=== PATIENT | female | born 1990 | race Caucasian/White ===

== ENCOUNTER 2017-12-14 17:13 | Emergency (ER) | payer SELFPAY ==
--- NOTE | 2017-12-14 19:05 | ER ---
Nurse's Notes [facility] Name: Sade Breaux Age: 27 yrs Sex: Female : 1990 Arrival Date: 12/14/2017 Time: 17:16 Bed 28 Private MD: None, None Diagnosis: Dermatitis, unspecified Presentation: 12/14 18:08 Presenting complaint: Patient states: Rash to right forearm and upper right arm since aj Sunday. Transition of care: patient was not received from another setting of care. Onset of symptoms was December 09, 2017. Risk Assessment: Do you want to hurt yourself or someone else? Patient reports no desire to harm self or others. Care prior to arrival: None. 18:08 Method Of Arrival: Ambulatory aj 18:08 Acuity: LETTY 4 aj 18:08 Acuity: LETTY 5 aj 19:17 Initial Sepsis Screen: Does the patient meet any 2 criteria? No. Patient's initial tl3 sepsis screen is negative. Does the patient have a suspected source of infection? No. Patient's initial sepsis screen is negative. Triage Assessment: 18:10 General: Appears in no apparent distress. comfortable, Behavior is calm, cooperative, aj appropriate for age. Pain: Denies pain. Neuro: Level of Consciousness is awake, alert, obeys commands, Oriented to person, place, time, situation, Appropriate for age. Respiratory: Airway is patent Respiratory effort is even, unlabored, Respiratory pattern is regular, symmetrical. Derm: Skin is intact, is healthy with good turgor, Skin is pink, warm \T\ dry. normal, Rash noted that is red, raised, on right tricep and palmar aspect of right forearm. 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 - Social history:: Smoking status: Patient/guardian denies using tobacco. - Ebola Screening: : Patient negative for fever greater than or equal to 101.5 degrees Fahrenheit, and additional compatible Ebola Virus Disease symptoms Patient denies exposure to infectious person Patient denies travel to an Ebola-affected area in the 21 days before illness onset No symptoms or risks identified at this time. - Family history:: not pertinent. Screenin:44 Abuse screen: Denies threats or abuse. Nutritional screening: No deficits noted. tl3 Tuberculosis screening: No symptoms or risk factors identified. Fall Risk None identified. Assessment: 18:44 General: Appears uncomfortable, slender, well groomed, well developed, well nourished, tl3 Behavior is calm, cooperative, appropriate for age. Pain: Denies pain. Complains of pain in right arm and palmar aspect of right forearm and right tricep. Neuro: Level of Consciousness is awake, alert, obeys commands, Oriented to person, place, time, situation, Appropriate for age. Cardiovascular: No deficits noted. Patient's skin is warm and dry. Respiratory: No deficits noted. Airway is patent Respiratory effort is even, unlabored, Respiratory pattern is regular, symmetrical. GI: No signs and/or symptoms were reported involving the gastrointestinal system. : No signs and/or symptoms were reported regarding the genitourinary system. EENT: No signs and/or symptoms were reported regarding the EENT system. Derm: Reports rash since Sunday, after clearing some weeds. Musculoskeletal: No deficits noted. Vital Signs: 18:10 BP 98 / 67; Pulse 82; Resp 17; Temp 97.9; Pulse Ox 100% on R/A; Weight 65.32 kg; Height aj 5 ft. 6 in. (167.64 cm); 18:44 BP 110 / 77; Pulse 59; Resp 18; Pulse Ox 100% ; tl3 18:10 Body Mass Index 23.24 (65.32 kg, 167.64 cm) aj ED Course: 17:16 Patient arrived in ED. sb2 17:16 None, None is Private Physician. sb2 18:10 Triage completed. aj 18:10 Arm band placed on left wrist. Patient placed in waiting room, Patient notified of wait aj time. 18:40 Milvia Watts, RN is Primary Nurse. tl3 18:44 Patient has correct armband on for positive identification. Bed in low position. Call tl3 light in reach. Pulse ox on. NIBP on. 18:44 No provider procedures requiring assistance completed. tl3 18:55 Mayo Abdul MD is Attending Physician. gerardo 19:16 Patient did not have IV access during this emergency room visit. tl3 Administered Medications: 19:15 Drug: Pepcid 20 mg Route: PO; tl3 19:16 Follow up: Response: Medication administered at discharge. tl3 19:16 Drug: predniSONE 20 mg Route: PO; tl3 19:16 Follow up: Response: Medication administered at discharge. tl3 Outcome: 19:05 Discharge ordered by . gerardo 19:16 Discharged to home ambulatory. tl3 19:16 Condition: good 19:16 Discharge instructions given to patient, Instructed on discharge instructions, follow up and referral plans. medication usage, Demonstrated understanding of instructions, follow-up care, medications, Prescriptions given X 3. 19:17 Patient left the ED. tl3 Signatures: Aliya Soto, RN RN Mayo Newton MD MD cha Billeau, Sheri 2 Milvia Watts, RAFAELA RN tl3
--- NOTE | 2017-12-14 19:05 | EDPHYS ---
Physician Documentation [facility] Name: Sade Breaux Age: 27 yrs Sex: Female : 1990 Arrival Date: 12/14/2017 Time: 17:16 Bed 28 Private MD: None, None ED Physician Mayo Abdul HPI: 12/14 19:01 This 27 yrs old Female presents to ER via Ambulatory with complaints of Rash. gerardo 19:01 The patient's rash thought to be caused by Dermatitis. The rash is located on the right gerardo arm, left arm and right leg. The rash can be described as erythematous, raised. Onset: The symptoms/episode began/occurred 2 day(s) ago. Associated signs and symptoms: Pertinent positives: burning sensation, itching. Severity of symptoms: At their worst the symptoms were mild in the emergency department the symptoms are unchanged. Treatment given at home: Benadryl, OTC lotion/cream steroid lotion/cream. Unable to obtain HPI due to. The patient has not experienced similar symptoms in the past. 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 - Social history:: Smoking status: Patient/guardian denies using tobacco. - Ebola Screening: : Patient negative for fever greater than or equal to 101.5 degrees Fahrenheit, and additional compatible Ebola Virus Disease symptoms Patient denies exposure to infectious person Patient denies travel to an Ebola-affected area in the 21 days before illness onset No symptoms or risks identified at this time. - Family history:: not pertinent. ROS: 19:01 Constitutional: Negative for fever, chills, and weight loss, Eyes: Negative for injury, gerardo pain, redness, and discharge, ENT: Negative for injury, pain, and discharge, Neck: Negative for injury, pain, and swelling, Cardiovascular: Negative for chest pain, palpitations, and edema, Respiratory: Negative for shortness of breath, cough, wheezing, and pleuritic chest pain, Abdomen/GI: Negative for abdominal pain, nausea, vomiting, diarrhea, and constipation, Back: Negative for injury and pain, : Negative for injury, bleeding, discharge, and swelling, Skin: Negative for injury, rash, and discoloration, Neuro: Negative for headache, weakness, numbness, tingling, and seizure, Psych: Negative for depression, anxiety, suicide ideation, homicidal ideation, and hallucinations, Allergy/Immunology: Negative for hives, rash, and allergies, Endocrine: Negative for neck swelling, polydipsia, polyuria, polyphagia, and marked weight changes, Hematologic/Lymphatic: Negative for swollen nodes, abnormal bleeding, and unusual bruising. 19:01 MS/extremity: Positive for rash, of the right arm, left arm and right leg. Exam: 19:01 Constitutional: This is a well developed, well nourished patient who is awake, alert, gerardo and in no acute distress. Head/Face: Normocephalic, atraumatic. Eyes: Pupils equal round and reactive to light, extra-ocular motions intact. Lids and lashes normal. Conjunctiva and sclera are non-icteric and not injected. Cornea within normal limits. Periorbital areas with no swelling, redness, or edema. ENT: Nares patent. No nasal discharge, no septal abnormalities noted. Tympanic membranes are normal and external auditory canals are clear. Oropharynx with no redness, swelling, or masses, exudates, or evidence of obstruction, uvula midline. Mucous membranes moist. Neck: Trachea midline, no thyromegaly or masses palpated, and no cervical lymphadenopathy. Supple, full range of motion without nuchal rigidity, or vertebral point tenderness. No Meningismus. Chest/axilla: Normal chest wall appearance and motion. Nontender with no deformity. No lesions are appreciated. Cardiovascular: Regular rate and rhythm with a normal S1 and S2. No gallops, murmurs, or rubs. Normal PMI, no JVD. No pulse deficits. Respiratory: Lungs have equal breath sounds bilaterally, clear to auscultation and percussion. No rales, rhonchi or wheezes noted. No increased work of breathing, no retractions or nasal flaring. Abdomen/GI: Soft, non-tender, with normal bowel sounds. No distension or tympany. No guarding or rebound. No evidence of tenderness throughout. Back: No spinal tenderness. No costovertebral tenderness. Full range of motion. MS/ Extremity: Pulses equal, no cyanosis. Neurovascular intact. Full, normal range of motion. Neuro: Awake and alert, GCS 15, oriented to person, place, time, and situation. Cranial nerves II-XII grossly intact. Motor strength 5/5 in all extremities. Sensory grossly intact. Cerebellar exam normal. Normal gait. Psych: Awake, alert, with orientation to person, place and time. Behavior, mood, and affect are within normal limits. 19:01 Skin: rash can be described as erythematous, nonspecific, raised. Vital Signs: 18:10 BP 98 / 67; Pulse 82; Resp 17; Temp 97.9; Pulse Ox 100% on R/A; Weight 65.32 kg; Height aj 5 ft. 6 in. (167.64 cm); 18:44 BP 110 / 77; Pulse 59; Resp 18; Pulse Ox 100% ; tl3 18:10 Body Mass Index 23.24 (65.32 kg, 167.64 cm) aj MDM: 18:55 Patient medically screened. gerardo Administered Medications: 19:15 Drug: Pepcid 20 mg Route: PO; tl3 19:16 Follow up: Response: Medication administered at discharge. tl3 19:16 Drug: predniSONE 20 mg Route: PO; tl3 19:16 Follow up: Response: Medication administered at discharge. tl3 Disposition: 12/14/17 19:05 Discharged to Home. Impression: Dermatitis, unspecified. - Condition is Stable. - Discharge Instructions: Contact Dermatitis, Rash, Rash, [id number], Contact Dermatitis, [id number]. - Prescriptions for Bactroban 2 % Topical Ointment - Apply to affected area 1 application by TOPICAL route every 12 hours; 30 gram. Benadryl 25 mg Oral Capsule - take 1 capsule by ORAL route every 6 hours As needed; 30 tablet. Pepcid 20 mg Oral Tablet - take 1 tablet by ORAL route every 12 hours for 10 days; 20 tablet. Medrol (Jim) 4 mg Oral Tablets, Dose Pack - take 1 tablet by ORAL route as directed - follow package instructions; 1 packet. - Medication Reconciliation Form, Thank You Letter, Antibiotic Education, Prescription Opioid Use form. - Follow up: Private Physician; When: 2 - 3 days; Reason: Recheck today's complaints, Continuance of care, Re-evaluation by your physician. - Problem is new. - Symptoms have improved. Signatures: Aliya Soto, RN RN Mayo Newton MD MD cha Lowrey, Tammy, RAFAELA RN tl3 Corrections: (The following items were deleted from the chart) 19:17 19:05 12/14/2017 19:05 Discharged to Home. Impression: Dermatitis, unspecified. tl3 Condition is Stable. Forms are Medication Reconciliation Form, Thank You Letter, Antibiotic Education, Prescription Opioid Use. Follow up: Private Physician; When: 2 - 3 days; Reason: Recheck today's complaints, Continuance of care, Re-evaluation by your physician. Problem is new. Symptoms have improved. gerardo
[2017-12-14] MEDS ORDERED: predniSONE 20 MG TAB ONE (19:13)
[2017-12-14] MEDS ORDERED: FAMOTIDINE 20 MG TAB ONE (19:13)
[2017-12-14 19:21] VITALS: TEMP 97.9; O2SAT 100
[2017-12-14 19:22] VITALS: BP 110/77
== END 2017-12-14 19:17 | disposition home or self-care (01) ==
LOC: ER 17:13
DX: L30.9 Dermatitis, unspecified (principal)
CPT/HCPCS: 99283; J7512

== ENCOUNTER 2018-04-19 09:38 | Observation (INO) | payer SELFPAY ==
[2018-04-19] MEDS ORDERED: NA CHLORIDE 0.9% 1,000 ML ONE (10:36)
[2018-04-19 10:55] LABS: Absolute Lymphocytes (CBC) 1.6 K/uL (0.7-4.9); Absolute Neutrophil 9.7 K/uL (1.8-8.0); Basophils % 0.2 % (0-1.3); Eosinophils % 0.4 % (0-4.4); Hematocrit 36.8 % (36.0-45.0); Lymphocytes % 13.2 % (15.3-44.8); MPV 8.6 fL (7.6-11.3); Monocytes % 7.7 % (3.3-12.3); RBC Red Blood Cell Count 3.95 M/uL (3.86-4.86)
[2018-04-19 11:05] LABS: ALT/SGPT 16 U/L (12-78); AST/SGOT 10 U/L (15-37); Albumin 3.8 g/dL (3.4-5.0); Alkaline Phosphatase 84 U/L (45-117); BUN Blood Urea Nitrogen 12 mg/dL (7-18); Bicarbonate 28 mmol/L (21-32); Bilirubin Direct 0.2 mg/dL (0-0.2); Bilirubin Total 0.9 mg/dL (0.2-1.0); Glucose Level 101 mg/dL (74-106); Lipase 126 U/L (73-393); Potassium 3.6 mmol/L (3.5-5.1); Protein, Total 7.7 g/dL (6.4-8.2); Sodium Level 141 mmol/L (136-145)
--- NOTE | 2018-04-19 11:28 | RAD REPORT ---
EXAM DESCRIPTION: CT - Pelvis W/Cont - 04/19/2018 11:18 am CLINICAL HISTORY: Rectal abscess COMPARISON: No comparisons TECHNIQUE: All CT scans are performed using dose optimization technique as appropriate and may inclu de automated exposure control or mA/KV adjustment according to patient size. FINDINGS: A left perirectal abscess is identified measuring 29 x 19 x 29 mm (AP x T x CC). The adjac ent soft tissues are thickened with inflammation in the fat. No intrapelvic extension of abscess seen. IUD is in the uterus. Several mildly prominent inguinal lym ph nodes present. IMPRESSION: Left perirectal abscess as detailed.
[2018-04-19] MEDS ORDERED: MORPHINE 4 MG/ML SYR ONE ×2 (11:37→14:44)
[2018-04-19] MEDS ORDERED: ONDANSETRON 4 MG/2 ML VIAL ONE (11:37)
[2018-04-19] MEDS ORDERED: CIPROFLOXACIN 400mg IV 400 MG/200 ML BAG IV ONE (11:56)
[2018-04-19] MEDS ORDERED: METRONIDAZOLE 500mg IVPB 500 MG/100 ML BAG IV ONE (11:56)
--- NOTE | 2018-04-19 11:57 | EDPHYS ---
Physician Documentation [facility] Name: Sade Breaux Age: 27 yrs Sex: Female : 1990 Arrival Date: 04/19/2018 Time: 09:41 Bed 14 Private MD: ED Physician Tony Wilson HPI: 04/19 10:10 This 27 yrs old Female presents to ER via Ambulatory with complaints of pm1 Abscess. 10:10 the patient presents with a swollen area of the left side of anus. Description: pm1 swollen. Onset: The symptoms/episode began/occurred 5 day(s) ago. Possible cause(s): Unknown. Associated signs and symptoms: Pertinent negatives: discharge, drainage, fever. Modifying factors: the symptoms are alleviated by repositioning , the symptoms are aggravated by pressure. Severity of symptoms: in the emergency department the symptoms are actually worse. The patient has not experienced similar symptoms in the past. The patient has not recently seen a physician. Patient shaved perianal area about 1 week ago. 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 - Social history:: Smoking status: Patient uses tobacco products, denies chronic smoking, but will smoke occasionally. - Ebola Screening: : No symptoms or risks identified at this time. ROS: 10:10 Constitutional: Negative for fever, chills, and weight loss, Eyes: Negative for injury, pm1 pain, redness, and discharge, ENT: Negative for injury, pain, and discharge, Neck: Negative for injury, pain, and swelling, Cardiovascular: Negative for chest pain, palpitations, and edema, Respiratory: Negative for shortness of breath, cough, wheezing, and pleuritic chest pain. 10:10 Back: Negative for injury and pain, : Negative for injury, bleeding, discharge, and swelling, MS/Extremity: Negative for injury and deformity, Skin: Negative for injury, rash, and discoloration, Neuro: Negative for headache, weakness, numbness, tingling, and seizure. 10:10 Abdomen/GI: Positive for rectal pain, Negative for abdominal pain, nausea, vomiting, and diarrhea, constipation. Exam: 10:10 Constitutional: This is a well developed, well nourished patient who is awake, alert, pm1 and in no acute distress. Head/Face: Normocephalic, atraumatic. Eyes: Pupils equal round and reactive to light, extra-ocular motions intact. Lids and lashes normal. Conjunctiva and sclera are non-icteric and not injected. Cornea within normal limits. Periorbital areas with no swelling, redness, or edema. ENT: Nares patent. No nasal discharge, no septal abnormalities noted. Tympanic membranes are normal and external auditory canals are clear. Oropharynx with no redness, swelling, or masses, exudates, or evidence of obstruction, uvula midline. Mucous membranes moist. Neck: Trachea midline, no thyromegaly or masses palpated, and no cervical lymphadenopathy. Supple, full range of motion without nuchal rigidity, or vertebral point tenderness. No Meningismus. Chest/axilla: Normal chest wall appearance and motion. Nontender with no deformity. No lesions are appreciated. Cardiovascular: Regular rate and rhythm with a normal S1 and S2. No gallops, murmurs, or rubs. Normal PMI, no JVD. No pulse deficits. Respiratory: Lungs have equal breath sounds bilaterally, clear to auscultation and percussion. No rales, rhonchi or wheezes noted. No increased work of breathing, no retractions or nasal flaring. 10:10 Back: No spinal tenderness. No costovertebral tenderness. Full range of motion. Skin: Warm, dry with normal turgor. Normal color with no rashes, no lesions, and no evidence of cellulitis. MS/ Extremity: Pulses equal, no cyanosis. Neurovascular intact. Full, normal range of motion. 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 10:10 Neuro: Orientation: is normal, Motor: is normal, moves all fours. Vital Signs: 09:49 BP 127 / 72; Pulse 121; Resp 16; Temp 98.1(O); Pulse Ox 100% ; Pain 8/10; hb 09:53 Pulse 106; sg 11:39 BP 105 / 63; Pulse 65; Resp 17; Pulse Ox 100% on R/A; sg 13:00 BP 108 / 66; Pulse 62; Resp 17; Pulse Ox 99% on R/A; Pain 6/10; sg 14:00 BP 110 / 66; Pulse 66; Resp 16; Pulse Ox 99% on R/A; Pain 6/10; sg 15:20 BP 108 / 62; Pulse 62; Resp 16; Temp 98.1; Pulse Ox 100% on R/A; Pain 3/10; sg MDM: 09:54 Patient medically screened. pm1 11:43 Data reviewed: vital signs. Data interpreted: Pulse oximetry: on room air is 100 %. pm1 Interpretation: normal. Counseling: I had a detailed discussion with the patient and/or guardian regarding: the historical points, exam findings, and any diagnostic results supporting the discharge/admit diagnosis, lab results, radiology results, the need for further work-up and treatment in the hospital. 11:53 Physician consultation: Sy Gaviria MD was called at 11:53. pm1 12:14 ED course: Patient last ate food at lunch yesterday and patient last drank 1/2 cup of pm1 sweet tea at 0800 today. 04/19 10:05 Order name: Basic Metabolic Panel; Complete Time: 11:27 pm1 04/19 10:05 Order name: CBC with Diff; Complete Time: 11:27 pm1 04/19 10:05 Order name: Creatinine for Radiology; Complete Time: 11:27 pm1 04/19 10:05 Order name: Hepatic Function; Complete Time: 11:27 pm1 04/19 10:05 Order name: Lipase; Complete Time: 11:27 pm1 04/19 10:14 Order name: Urine Dipstick--Ancillary (enter results); Complete Time: 14:32 eb 04/19 10:05 Order name: CT Pelvis w cont: IV contrast only; Complete Time: 11:37 pm1 04/19 10:14 Order name: Urine --Ancillary (enter results); Complete Time: 14:32 eb 04/19 13:15 Order name: Basic Metabolic Panel EDKY 04/19 13:15 Order name: Basic Metabolic Panel EDKY 04/19 13:15 Order name: CBC with Automated Diff EDMS 04/19 13:15 Order name: CBC with Automated Diff EDMS 04/19 10:05 Order name: IV Saline Lock; Complete Time: 10:37 pm1 04/19 10:05 Order name: Labs collected and sent; Complete Time: 10:37 pm1 04/19 10:09 Order name: NPO; Complete Time: 10:11 pm1 04/19 13:15 Order name: NPO EDMS Administered Medications: 10:37 Drug: NS 0.9% 1000 ml Route: IV; Rate: 1000 ml; Site: right antecubital; sg 11:40 Follow up: Response: No adverse reaction; IV Status: Completed infusion; IV Intake: sg 990ml 11:36 Drug: Zofran 4 mg Route: IVP; Site: right antecubital; sg 11:58 Follow up: Response: No adverse reaction; Nausea is decreased sg 11:38 Drug: morphine 4 mg Route: IVP; Site: right antecubital; sg 11:58 Follow up: Response: No adverse reaction; Pain is decreased sg 11:55 Drug: Flagyl 500 mg Volume: 100 ml; Route: IVPB; Rate: 200 ml/hr; Infused Over: 30 sg mins; Site: right antecubital; 12:35 Follow up: Response: No adverse reaction; IV Status: Completed infusion sg 12:13 Drug: Cipro 400 mg Volume: 200 ml; Route: IVPB; Infused Over: 60 mins; Site: right sg antecubital; 13:20 Follow up: Response: No adverse reaction; IV Status: Completed infusion sg 14:45 Drug: morphine 4 mg Route: IVP; Site: right antecubital; sg 15:22 Follow up: Response: No adverse reaction; Pain is decreased sg Disposition: 17:18 Co-signature as Attending Physician, Tony Wilson MD. rn Disposition: 04/19/18 11:56 Hospitalization ordered by Sy Gaviria for Observation. Preliminary diagnosis is Perirectal abscess. - Bed requested for Telemetry/MedSurg (observation). - Status is Observation. sg - Condition is Stable. - Problem is new. - Symptoms have improved. UTI on Admission? No Signatures: Dispatcher [employer] EDMS Ken Garcia RN RN Tony Wilson MD MD rn Marinas, Patrick, NP PROFESSIONAL BASS FISHER pm1 Sabine Garza, RN RN Zofia Tamayo Corrections: (The following items were deleted from the chart) 12:59 11:56 Hospitalization Ordered by Sy Gaviria MD for Observation. Preliminary eb diagnosis is Perirectal abscess. Bed requested for Telemetry/MedSurg (observation). Status is Observation. Condition is Stable. Problem is new. Symptoms have improved. UTI on Admission? No. pm1 14:04 12:59 04/19/2018 11:56 Hospitalization Ordered by Sy Gaviria MD for Observation. eb Preliminary diagnosis is Perirectal abscess. Bed requested for Telemetry/MedSurg (observation). Status is Observation. Condition is Stable. Problem is new. Symptoms have improved. UTI on Admission? No. eb 15:43 14:04 04/19/2018 11:56 Hospitalization Ordered by Sy Gaviria MD for Observation. sg Preliminary diagnosis is Perirectal abscess. Bed requested for Telemetry/MedSurg (observation). Status is Observation. Condition is Stable. Problem is new. Symptoms have improved. UTI on Admission? No. eb
--- NOTE | 2018-04-19 11:57 | ER ---
Nurse's Notes [facility] Name: Sade Breaux Age: 27 yrs Sex: Female : 1990 Arrival Date: 04/19/2018 Time: 09:41 Bed 14 Private MD: Diagnosis: Perirectal abscess Presentation: 04/19 09:48 Presenting complaint: Patient states: Abscess on buttock x 5 days. Transition of care: hb patient was not received from another setting of care. Onset of symptoms was April 15, 2018. Risk Assessment: Do you want to hurt yourself or someone else? Patient reports no desire to harm self or others. Care prior to arrival: None. 09:48 Method Of Arrival: Ambulatory hb 09:48 Acuity: LETTY 3 hb DIRECTOR OF ANNUAL GIVING: 09:50 LMP N/A - control method hb Historical: - Allergies: 09:51 No Known Allergies; hb - Home Meds: 09:51 None [Active]; hb - PMHx: 09:51 None; hb - PSHx: 09:51 Neck; hb 09:51 Back; hb - Immunization history:: Adult Immunizations up to date. - Social history:: Smoking status: Patient uses tobacco products, denies chronic smoking, but will smoke occasionally. - Ebola Screening: : No symptoms or risks identified at this time. Screenin:40 Abuse screen: Denies threats or abuse. Denies injuries from another. Nutritional sg screening: No deficits noted. Tuberculosis screening: No symptoms or risk factors identified. Never had TB. Fall Risk None identified. Assessment: 10:40 General: Appears in no apparent distress. uncomfortable, well groomed, well developed, sg well nourished, Behavior is calm, cooperative, appropriate for age. Pain: Complains of pain in buttocks Quality of pain is described as tender. Neuro: No deficits noted. Cardiovascular: Patient's skin is warm and dry. Chest pain is denied. Respiratory: Airway is patent Respiratory effort is even, unlabored, Respiratory pattern is regular, symmetrical. GI: No signs and/or symptoms were reported involving the gastrointestinal system. : No signs and/or symptoms were reported regarding the genitourinary system. EENT: No signs and/or symptoms were reported regarding the EENT system. Derm: Skin is pink, warm \T\ dry. Abscess located on gluteal cleft is nickel sized, is red. Musculoskeletal: No signs and/or symptoms reported regarding the musculoskeletal system. 11:59 Reassessment: Patient appears in no apparent distress at this time. Patient and/or sg family updated on plan of care and expected duration. Pain level reassessed. Last meal 11 am yesterday, drank some water this morning per pt. 12:22 Reassessment: Patient appears in no apparent distress at this time. Patient and/or sg family updated on plan of care and expected duration. Pain level reassessed. Patient is alert, oriented x 3, equal unlabored respirations, skin warm/dry/pink. Vital Signs: 09:49 BP 127 / 72; Pulse 121; Resp 16; Temp 98.1(O); Pulse Ox 100% ; Pain 8/10; hb 09:53 Pulse 106; sg 11:39 BP 105 / 63; Pulse 65; Resp 17; Pulse Ox 100% on R/A; sg 13:00 BP 108 / 66; Pulse 62; Resp 17; Pulse Ox 99% on R/A; Pain 6/10; sg 14:00 BP 110 / 66; Pulse 66; Resp 16; Pulse Ox 99% on R/A; Pain 6/10; sg 15:20 BP 108 / 62; Pulse 62; Resp 16; Temp 98.1; Pulse Ox 100% on R/A; Pain 3/10; sg ED Course: 09:41 Patient arrived in ED. as 09:49 Triage completed. hb 09:50 Alex Day NP is PHCP. pm1 09:50 Tony Wilson MD is Attending Physician. pm1 09:50 Arm band placed on right wrist. hb 09:53 Ken Garcia, RAFAELA is Primary Nurse. sg 10:10 Urine collected: clean catch specimen, lillian colored. dh3 10:30 Initial lab(s) drawn, by me, sent to lab. Inserted saline lock: 20 gauge in right sg antecubital area, using aseptic technique. Missed attempt(s): 22 gauge in left upper arm. Bleeding controlled, band aid applied, catheter tip intact. 10:40 Patient has correct armband on for positive identification. Bed in low position. Call sg light in reach. Pulse ox on. NIBP on. Warm blanket given. Head of bed elevated. 10:45 Radiology exam delayed due to lab results not completed at this time. (BUN/Creatinine) jg6 test not completed at this time. 11:[address] via wheelchair. vr 11:14 CT completed. Patient tolerated procedure well. Patient moved back from CT. vr 11:17 CT Pelvis w cont: IV contrast only In Process Unspecified. EDMS 11:54 Sy Gaviria MD is Hospitalizing Provider. pm1 15:40 No provider procedures requiring assistance completed. Patient admitted, IV remains in sg place. intact, bleeding controlled, No redness/swelling at site. Pressure dressing applied. Administered Medications: 10:37 Drug: NS 0.9% 1000 ml Route: IV; Rate: 1000 ml; Site: right antecubital; sg 11:40 Follow up: Response: No adverse reaction; IV Status: Completed infusion; IV Intake: sg 990ml 11:36 Drug: Zofran 4 mg Route: IVP; Site: right antecubital; sg 11:58 Follow up: Response: No adverse reaction; Nausea is decreased sg 11:38 Drug: morphine 4 mg Route: IVP; Site: right antecubital; sg 11:58 Follow up: Response: No adverse reaction; Pain is decreased sg 11:55 Drug: Flagyl 500 mg Volume: 100 ml; Route: IVPB; Rate: 200 ml/hr; Infused Over: 30 sg mins; Site: right antecubital; 12:35 Follow up: Response: No adverse reaction; IV Status: Completed infusion sg 12:13 Drug: Cipro 400 mg Volume: 200 ml; Route: IVPB; Infused Over: 60 mins; Site: right sg antecubital; 13:20 Follow up: Response: No adverse reaction; IV Status: Completed infusion sg 14:45 Drug: morphine 4 mg Route: IVP; Site: right antecubital; sg 15:22 Follow up: Response: No adverse reaction; Pain is decreased sg Intake: 11:40 IV: 990ml; Total: 990ml. sg Outcome: 11:56 Decision to Hospitalize by Provider. pm1 15:41 Admitted to Med/surg accompanied by tech, via wheelchair, room 422, with chart, Report sg called to Sy Salazar RN 15:41 Condition: stable 15:41 Instructed on the need for admit, safety practices, Demonstrated understanding of instructions. 15:43 Patient left the ED. sg Signatures: Dispatcher [employer] EDKen James RN RN Tessa Anderson Victoria vr Marinas, Patrick, MI[employer] DYNAM[employer] DEVELOPER [employer] DEVELOPER pm1 Sabine Garza RN RN Reema Bragg 3 Heidy Montano6 Corrections: (The following items were deleted from the chart) 12:24 10:40 Derm: Skin is pink, warm \T\ dry. [facility]
[2018-04-19 13:40] LABS: Urine Blood 2+ (NEG); Urine Glucose NEGATIVE (NEG); Urine Protein 1+ (NEG); Urine pH 5.5 (5.0-7.0)
[2018-04-19 16:05] VITALS: BMI 26.1
[2018-04-19] MEDS: NA CHLORIDE 0.9% 1,000 ML IV SCH ×3 (16:24→23:35)
[2018-04-19] MEDS: METRONIDAZOLE 500mg IVPB 500 MG/100 ML BAG IV SCH (17:09)
[2018-04-19] MEDS: MORPHINE 4 MG/ML SYR IV PRN (18:44)
[2018-04-19] MEDS: ACETAMINOPHEN 500 MG TAB PO PRN (20:00)
[2018-04-19] MEDS: CIPROFLOXACIN 400mg IV 400 MG/200 ML BAG IV SCH (20:00)
[2018-04-19] MEDS: HYDROCODONE/APAP 5/325 MG TAB PO PRN (23:48)
[2018-04-20] MEDS: METRONIDAZOLE 500mg IVPB 500 MG/100 ML BAG IV SCH ×3 (00:49→17:35)
[2018-04-20] MEDS: HYDROCODONE/APAP 5/325 MG TAB PO PRN ×3 (03:53→20:22)
[2018-04-20] MEDS: ONDANSETRON 4 MG/2 ML VIAL IV PRN ×2 (05:32→23:08)
[2018-04-20] MEDS: NA CHLORIDE 0.9% 1,000 ML IV SCH ×3 (05:44→23:45)
[2018-04-20 06:12] LABS: BUN Blood Urea Nitrogen 8 mg/dL (7-18); Bicarbonate 25 mmol/L (21-32); Glucose Level 97 mg/dL (74-106); Potassium 3.7 mmol/L (3.5-5.1); Sodium Level 143 mmol/L (136-145)
[2018-04-20 06:19] LABS: Absolute Lymphocytes (CBC) 1.8 K/uL (0.7-4.9); Absolute Monocytes 1.2 K/uL (0.1-1.3); Absolute Neutrophil 10.5 K/uL (1.8-8.0); Basophils % 0.2 % (0-1.3); Eosinophils % 0.5 % (0-4.4); Lymphocytes % 13.5 % (15.3-44.8)
[2018-04-20] MEDS: CIPROFLOXACIN 400mg IV 400 MG/200 ML BAG IV SCH ×2 (09:41→20:21)
[2018-04-20] MEDS: ACETAMINOPHEN 500 MG TAB PO PRN (10:00)
[2018-04-20] MEDS ORDERED: FENTANYL CITR 100 MCG/2 ML ONE ×2 (11:06→11:42)
[2018-04-20] MEDS ORDERED: PROPOFOL 200 MG/20 ML VIAL IV ONE (11:07)
[2018-04-20] MEDS ORDERED: BUPIVACAINE 0.5% PF 10 ML VIAL ONE (11:17)
--- NOTE | 2018-04-20 11:34 | P.BOP ---
Preoperative diagnosis: perianal cellulitis/ abscess Postoperative diagnosis: perianal/ perirectal abscess Primary procedure: Incision and drainage of perirectal abscess, EUa, anoscopy Secondary procedure: rigid proctoscopy Anesthesia: General Complications: None Transferred to: Recovery Room Condition: Good
[2018-04-20] MEDS ORDERED: KETOROLAC 30 MG/ML INJ ONE (11:39)
[2018-04-20] MEDS ORDERED: ONDANSETRON 4 MG/2 ML VIAL ONE (11:39)
[2018-04-20] MEDS ORDERED: DEXAMETHASONE 10 MG/ML VIAL ONE (11:39)
--- NOTE | 2018-04-20 14:27 | HP ---
Date of Admission: 04/19/2018 This patient was seen in the ER. History Of Present Illness: This is a case of a 27-year-old female who comes to us with about 5 days history of discomfort over the anal region and buttock region, up to tonight, when she developed mor e of perianal pain, and comes to the ER, diagnosed with a perianal abscess and a surgical evaluation was requested. She denies any trauma, dysuria, hematuria, hematochezia, melena. She denies any rece nt traveling out of the country. Denies any family member sick at home. No last menstrual period. The is on patient control. Medications: control. Past Medical History: None. Past Surgical History: Neck surgery, she does remember the details. Allergies: NONE. Social History: The patient smokes occasionally. She does not drink alcohol. Family History: Unremarkable. Review of Systems: Constitutional: Denies any fever. Respiratory: Denies any shortness of breath. Gastrointestinal: As above. Physical Examination: General: The patient is awake and alert. HEENT: Pupils are equal and reactive, anicteric. Neck: Supple. Chest: Clear. Heart: S1, S2. Abdomen: Soft and depressible. No guarding, rebound. No peritoneal signs. Perianal region, patien t has a cellulitis present what could be consistent with a perianal abscess. No drainage. Extremities: Good capillary refill. Neuro: Cranial nerves 2 through 12 grossly normal limits. Breasts/Pelvic: Deferred. Rectal: Refused due to tenderness. Laboratory Data: The blood work shows WBC count of 12.4, hemoglobin of 12.8, platelets of 215. Pota ssium of 3.6 with a creatinine 0.7. UA, nitrite negative. A pelvic CT shows left perirectal abscess . Assessment: Left perirectal abscess. Plan: Will be EUA anoscopy, proctoscopy, incision and drainage of perianal/perirectal abscess. The benefits, alternatives, and risks fully explained to the patient, which include but are not limited t o infection, bleeding, damage to adjacent structures, anesthesia complication, recurrence, ID, and ev en . She also understands this may not relieve any symptoms. She might need more than one surg ical intervention. She understands she will require wound care. She is eating at this moment. We a re going to start n.p.o., so we can do this with an empty stomach under anesthesia. SAMRA Voice ID: [id number]
[2018-04-20] MEDS: MORPHINE 4 MG/ML SYR IV PRN (18:36)
[2018-04-21] MEDS: METRONIDAZOLE 500mg IVPB 500 MG/100 ML BAG IV SCH ×2 (00:26→08:07)
[2018-04-21] MEDS: HYDROCODONE/APAP 5/325 MG TAB PO PRN ×2 (00:26→06:26)
[2018-04-21] MEDS: NA CHLORIDE 0.9% 1,000 ML IV SCH (03:21)
[2018-04-21] MEDS: CIPROFLOXACIN 400mg IV 400 MG/200 ML BAG IV SCH (09:15)
[2018-04-21 11:27] VITALS: O2SAT 98
[2018-04-21 12:00] VITALS: BP 105/57; TEMP 98.6
--- NOTE | 2018-06-05 20:55 | OP ---
Date of Procedure: 04/20/2018 Surgeon: Sy Gaviria MD Preoperative Diagnosis: Perianal cellulitis and abscess. Postoperative Diagnosis: Perianal and perirectal abscess. Procedure: Incision and drainage of perirectal abscess. Examination under anesthesia, anoscopy, rig id proctoscopy. Anesthesia: General plus local. Indications: This is a case of a female who comes to us with perianal and possible perirectal absces s. Benefits and risks of incision and drainage of perirectal perianal abscess, examination under ane sthesia, anoscopy, rigid proctoscopy, fully explained to the patient, which include but are not limit ed to infection, bleeding, damage to adjacent structures, anesthesia complication, anal stricture, an al incontinence, bowel perforation, IL, even . She also understands this may not relieve any sy mptoms. She might need more than one surgical intervention. She understood also the need for wound care. She advised in the future to see a boat wrapper to rule out any pathology that may contr ibute to this abscess or even fistulas. She understood, signed a consent. Description Of Procedure: The patient was brought to the operating room, placed in supine position. Anesthesia was done without complication. The patient was placed in lithotomy position with proper protection. Time-out was called. Perianal area was prepped and draped in sterile fashion. Examinat ion under anesthesia was started. Rectal examination was done. Then, after that, re-proctoscopy was done all the way about 15 cm, limited by the amount of stool the patient has present. We did not se e any masses inside or any connection of a fistula. We then proceeded to do an anoscope with a windo w on the side that let me evaluate the anal canal. We noticed the patient to have a perianal and it goes into the distal rectum abscess. An incision was made right at the abscess. Loculations were ex plored, opened, and tracked into the area of the rectal wall. All the loculations were explored and opened. Cultures were done and then the area after hemostasis was done, was packed with wet-to-dry d ressing. The patient tolerated the procedure well. The sphincter was preserved at all times. The p atient was sent to recovery in stable condition. Disposition: Home. Discharge Instructions: Dressings wet-to-dry dressing daily and sitz baths 4 times a day after every bowel movement. Follow up with my office in 1 week. For medications see orders. ARUN/JACEK Voice ID: [id number] Report ID: [id number]
--- NOTE | 2018-06-17 21:10 | DS ---
Date of Discharge: 04/21/2018 Diagnosis: Perirectal abscess. Procedures: Incision and drainage of perirectal abscess, examination under anesthesia, anoscopy, and rigid proctoscopy. Disposition: Home. Discharge Instructions: Wet-to-dry dressing to the area daily. Sitz baths daily. The patient is ad vised to continue her antibiotics and pain medication and avoid constipation. ARUN/JACEK Voice ID: [id number] Report ID: [id number]
--- NOTE | 2018-06-17 21:10 | OP ---
Date of Procedure: 04/20/2018 Surgeon: Sy Gaviria MD Preoperative Diagnosis: Perianal cellulitis and abscess. Postoperative Diagnosis: Perianal and perirectal abscess. Procedure: Examination under anesthesia, anoscopy, rigid proctoscopy, incision and drainage of perir ectal abscess. Anesthesia: General plus local. Indications: This is the case of a 28-year-old patient with perianal tenderness. The patient had to be brought to the OR for examination with benefits, alternatives, and risks of I and D of perirectal -perianal abscess fully explained to the patient with also proctoscopy which include, but not limited to infection, bleeding, damage to adjacent structures, anesthesia complications, bowel perforation, anal stricture, anal incontinence, chronic pain, PR, and even . She also understands this may n ot relieve any symptoms. She might need more than one surgical intervention. She does understands s he may require wound care. She signed a consent. Description Of Procedure: The patient was brought to the operating room, placed in supine position. Anesthesia was done without complication. The patient was placed in lithotomy position with proper protection. Rectal examination was done after time-out was called and the area was prepped and drape d. A rigid proctoscopy was placed all the way about 12 cm, limited by the amount of stool present. We did not see any masses all the way to 12 cm. This was done under direct visualization without res istance in the center of the lumen. Then, after that, we placed an anoscope with a window on the jeanmarie e. We noticed the patient to have a perianal-perirectal abscess. A small incision was made in that area until we mobilized the area of abscess, and then we extended the incision. We found a complex a bscess in that area with multiple loculations, going not only outside but also into the rectum distal part about 2 to 3 cm in. The abscess was completely drained. Irrigation was done until clean. Cul tures were obtained. Hemostasis was obtained, and the area was packed with sterile dressings. The p atient tolerated the procedure well. Local anesthesia was applied before packing. The patient was s ent to Recovery in stable condition. Sponge count and instrument counts were correct. ARUN/JACEK Voice ID: [id number] Report ID: [id number]
== END 2018-04-21 11:56 | disposition home or self-care (01) ==
LOC: ER 09:38 → ERHOLD 13:09 → 4TH 15:39
PROVIDERS: ADMIT Surgery; ATTEND Surgery
PROC: 0DJD8ZZ Inspection of Lower Intestinal Tract, Via Natural or Artificial Opening Endoscopic (ICD-10-PCS; 2018-04-20)
PROC: 0DJD8ZZ Inspection of Lower Intestinal Tract, Via Natural or Artificial Opening Endoscopic (ICD-10-PCS; 2018-04-20)
PROC: 0D9P7ZX Drainage of Rectum, Via Natural or Artificial Opening, Diagnostic (ICD-10-PCS; principal; 2018-04-20 10:45)
DX: K61.1 Rectal abscess (principal); K61.0 Anal abscess
CPT/HCPCS: 36415; 72193; 80048; 80076; 81003; 81025; 83690; 85025; 87070; 87075; 87077; 87185; 87186; 87205; 96361; 96365; 96368; 96375; 99285; G0378; J0744; J1100; J2405; J2704; J3010; J7030; Q9967

== ENCOUNTER 2019-01-20 17:36 | Emergency (ER) | payer SELFPAY ==
--- OUTSIDE RECORDS SUMMARY | 2019-01-20 17:39 | XMS REPORT ---
:1990 [facility] Address [address] [place] [address] Dr. Duff. [address] [place] [id number] Care Team Providers Name Role Phone Unavailable Unavailable Unavailable Problems This patient has no known problems. Allergies, Adverse Reactions, Alerts This patient has no known allergies or adverse reactions. Medications This patient has no known medications.
[2019-01-20 19:21] LABS: Urine Blood 3+ (NEG); Urine Glucose NEGATIVE (NEG); Urine Protein 1+ (NEG); Urine Specific Gravity 1.015 (1.005-1.030)
[2019-01-20 19:36] LABS: Absolute Lymphocytes (CBC) 2.9 K/uL (0.7-4.9); Basophils % 0.5 % (0-1.3); Eosinophils % 1.9 % (0-4.4); Hematocrit 41.4 % (36.0-45.0); MPV 8.7 fL (7.6-11.3); Monocytes % 7.4 % (3.3-12.3); RBC Red Blood Cell Count 4.32 M/uL (3.86-4.86)
[2019-01-20 19:51] LABS: BUN Blood Urea Nitrogen 8 mg/dL (7-18); Bicarbonate 27 mmol/L (21-32); Glucose Level 86 mg/dL (74-106); Potassium 3.9 mmol/L (3.5-5.1); Sodium Level 142 mmol/L (136-145)
--- NOTE | 2019-01-20 20:03 | EDPHYS ---
Physician Documentation [facility] Name: Sade Breaux Age: 28 yrs Sex: Female : 1990 Arrival Date: 01/20/2019 Time: 17:37 Bed 19 Private MD: Olaf Dick T ED Physician Tony Wilson HPI: 01/20 19:56 This 28 yrs old Female presents to ER via Ambulatory with complaints of rn Vaginal Bleeding, Dizziness, Nausea. 19:56 The patient presents with vaginal bleeding that is light, with no clots. Onset: The rn symptoms/episode began/occurred 2 day(s) ago. Modifying factors: The symptoms are alleviated by nothing, the symptoms are aggravated by nothing. Associated signs and symptoms: Pertinent positives: vaginal bleeding, Pertinent negatives: dysuria, fever, vaginal discharge. Associated signs and symptoms: Pertinent negatives:. Severity of symptoms: At their worst the symptoms were. The patient has not experienced similar symptoms in the past. The patient has been recently seen by a physician:. Reports just had mirena removed, was imbedded, did not have any bleeding for 2 days after procedure, began spotting, now bleeding a little worse than normal period, although she has trouble recalling what is normal for her since she has not had period in 6 years. No trauma. No abd pain. No urinary symptoms. No syncope/chest pain/sob. Called her RAILROAD SIGNAL TECHNICIAN that she just saw, nurse told her to come and get checked. She reports feels fine and is surprised that they told her to come in.. 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 - Social history:: Smoking status: Patient uses tobacco products, denies chronic smoking, but will smoke occasionally. - Ebola Screening: : No symptoms or risks identified at this time. - Family history:: not pertinent. - Hospitalizations: : No recent hospitalization is reported. ROS: 19:56 Constitutional: Negative for fever, chills, and weight loss, Eyes: Negative for injury, rn pain, redness, and discharge, Neck: Negative for injury, pain, and swelling, Cardiovascular: Negative for chest pain, palpitations, and edema, Respiratory: Negative for shortness of breath, cough, wheezing, and pleuritic chest pain, Abdomen/GI: Negative for abdominal pain, nausea, vomiting, diarrhea, and constipation, Back: Negative for injury and pain, : + vaginal bleeding MS/Extremity: Negative for injury and deformity, Neuro: Negative for headache, weakness, numbness, tingling, and seizure. Exam: 19:56 Constitutional: This is a well developed, well nourished patient who is awake, alert, rn and in no acute distress. Head/Face: Normocephalic, atraumatic. Eyes: Pupils equal round and reactive to light, extra-ocular motions intact. Lids and lashes normal. Conjunctiva and sclera are non-icteric and not injected. Cornea within normal limits. Periorbital areas with no swelling, redness, or edema. ENT: MMM Respiratory: No increased work of breathing, no retractions or nasal flaring. Abdomen/GI: soft, non-tender Skin: Warm, dry with normal turgor. Normal color with no rashes, no lesions, and no evidence of cellulitis. MS/ Extremity: Pulses equal, no cyanosis. Neurovascular intact. Full, normal range of motion. Equal circumference. Neuro: Awake and alert, GCS 15, oriented to person, place, time, and situation. Cranial nerves II-XII grossly intact. Motor strength 5/5 in all extremities. Sensory grossly intact. Cerebellar exam normal. Normal gait. Vital Signs: 17:45 BP 119 / 81; Pulse 90; Resp 18 S; Temp 98.0(TE); Pulse Ox 100% on R/A; Weight 69.85 kg aa5 (R); Height 5 ft. 6 in. (167.64 cm) (R); Pain 7/10; 17:45 Body Mass Index 24.86 (69.85 kg, 167.64 cm) aa5 MDM: 18:59 Patient medically screened. rn 20:01 Differential diagnosis: menometrorrhagia, menorrhea, post procedural bleeding, rn menstrual cycle. Data reviewed: vital signs, nurses notes, lab test result(s), and as a result, I will discharge patient. Counseling: I had a detailed discussion with the patient and/or guardian regarding: the historical points, exam findings, and any diagnostic results supporting the discharge/admit diagnosis, lab results, the need for outpatient follow up, to return to the emergency department if symptoms worsen or persist or if there are any questions or concerns that arise at home. Special discussion: I discussed with the patient/guardian in detail that at this point there is no indication for admission to the hospital. It is understood, however, that if the symptoms persist or worsen the patient needs to return immediately for re-evaluation. Based on the history and exam findings, there is no indication for further emergent testing or inpatient evaluation. I discussed with the patient/guardian the need to see the OB Gyne specialist for further evaluation of the symptoms. ED course: Pt with normal vitals, normal h/h, delayed bleeding after removal of mirena, most likely menstrual cycle, recommend RAILROAD SIGNAL TECHNICIAN f/u given asymptomatic vaginal bleeding.. 01/20 18:49 Order name: Urine Dipstick--Ancillary (enter results); Complete Time: 19:55 [facility] 01/20 18:49 Order name: Urine --Ancillary (enter results); Complete Time: 19:55 [facility] 01/20 18:49 Order name: Urine Dipstick-Ancillary (obtain specimen); Complete Time: 18:50 [facility] 01/20 18:49 Order name: Urine Test (obtain specimen); Complete Time: 18:50 [facility] 01/20 19:15 Order name: CBC with Diff; Complete Time: 19:55 rn 01/20 19:15 Order name: Basic Metabolic Panel; Complete Time: 19:55 rn 01/20 19:15 Order name: IV Start; Complete Time: 19:55 rn Administered Medications: No medications were administered Disposition: 01/20/19 20:03 Discharged to Home. Impression: Abnormal uterine and vaginal bleeding, unspecified. - Condition is Stable. - Discharge Instructions: Abnormal Uterine Bleeding. - Medication Reconciliation Form, Thank You Letter, Antibiotic Education, Prescription Opioid Use form. - Follow up: Private Physician; When: As needed; Reason: Recheck today's complaints, Re-evaluation by your physician. - Problem is new. - Symptoms have improved. Signatures: Dispatcher [employer] EDMS Aliya Soto RN RN aj Nieto, Roman, MD MD rn Martinez, Eric [facility] Loan Peterson RN RN aa5 Corrections: (The following items were deleted from the chart) 20:10 20:03 01/20/2019 20:03 Discharged to Home. Impression: Abnormal uterine and vaginal aj bleeding, unspecified. Condition is Stable. Forms are Medication Reconciliation Form, Thank You Letter, Antibiotic Education, Prescription Opioid Use. Follow up: Private Physician; When: As needed; Reason: Recheck today's complaints, Re-evaluation by your physician. Problem is new. Symptoms have improved. rn
--- NOTE | 2019-01-20 20:03 | ER ---
Nurse's Notes [facility] Name: Sade Breaux Age: 28 yrs Sex: Female : 1990 Arrival Date: 01/20/2019 Time: 17:37 Bed 19 Private MD: Olaf Dick T Diagnosis: Abnormal uterine and vaginal bleeding, unspecified Presentation: 01/20 17:42 Presenting complaint: Patient states: "I had the Mirena removed on Sunday because it aa5 was imbedded but I didn't start bleeding until Sunday night". Pt c/o lower abd cramping and nausea, denies vomiting. Pt states "I called the [facility] nurse and she said to come here". Transition of care: patient was not received from another setting of care. Onset of symptoms was January 2019. Risk Assessment: Do you want to hurt yourself or someone else? Patient reports no desire to harm self or others. Initial Sepsis Screen: Does the patient meet any 2 criteria? No. Patient's initial sepsis screen is negative. Does the patient have a suspected source of infection? No. Patient's initial sepsis screen is negative. Care prior to arrival: None. 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 - Social history:: Smoking status: Patient uses tobacco products, denies chronic smoking, but will smoke occasionally. - Ebola Screening: : No symptoms or risks identified at this time. - Family history:: not pertinent. - Hospitalizations: : No recent hospitalization is reported. Screenin:08 Abuse screen: Denies threats or abuse. Denies injuries from another. Nutritional aj screening: No deficits noted. Tuberculosis screening: No symptoms or risk factors identified. Fall Risk None identified. Assessment: 20:08 General: Appears in no apparent distress. comfortable, Behavior is calm, cooperative, aj appropriate for age. Pain: Denies pain. Neuro: Level of Consciousness is awake, alert, obeys commands, Oriented to person, place, time, situation, Appropriate for age. Respiratory: Airway is patent Respiratory effort is even, unlabored, Respiratory pattern is regular, symmetrical. : Reports vaginal bleeding that is moderate flow. Derm: Skin is intact, is healthy with good turgor, Skin is pink, warm \\T\\ dry. normal. Vital Signs: 17:45 BP 119 / 81; Pulse 90; Resp 18 S; Temp 98.0(TE); Pulse Ox 100% on R/A; Weight 69.85 kg aa5 (R); Height 5 ft. 6 in. (167.64 cm) (R); Pain 7/10; 17:45 Body Mass Index 24.86 (69.85 kg, 167.64 cm) aa5 ED Course: 17:37 Patient arrived in ED. rg4 17:37 Olaf Dick MD is Private Physician. rg4 17:42 Arm band placed on. aa5 17:44 Triage completed. aa5 18:39 Leandro Hess, RAFAELA is Primary Nurse. bp 18:58 Tony Wilson MD is Attending Physician. rn 19:02 Urine --Ancillary (enter results) Sent. aj 19:02 Urine Dipstick--Ancillary (enter results) Sent. aj 20:08 Patient has correct armband on for positive identification. aj 20:08 No provider procedures requiring assistance completed. IV discontinued, intact, aj bleeding controlled, No redness/swelling at site. Pressure dressing applied. Administered Medications: No medications were administered Outcome: 20:03 Discharge ordered by . rn 20:08 Discharged to home ambulatory, with family. aj 20:08 Condition: good 20:08 Discharge instructions given to patient, Instructed on discharge instructions, follow up and referral plans. Demonstrated understanding of instructions, follow-up care. 20:10 Patient left the ED. aj Signatures: Aliya Soto RN RN aj Nieto, Roman, MD MD rn Calderon, Audri, RN RN [facility] Leandro Hess RN RN bp
[2019-01-20 22:06] VITALS: BP 119/81; TEMP 98; O2SAT 100
== END 2019-01-20 20:10 | disposition home or self-care (01) ==
LOC: ER 17:36
DX: N93.9 Abnormal uterine and vaginal bleeding, unspecified (principal); Z72.0 Tobacco use
CPT/HCPCS: 36415; 80048; 81003; 81025; 85025; 99283